=== PATIENT | male | born 1930 | race Caucasian/White ===

== ENCOUNTER 2018-07-28 08:35 | Outpatient (CLI) | payer OTHER, MEDICARE | END 2018-07-28 18:28 | disposition home or self-care (01) | LOC: SCT 08:35 | PROVIDERS: ATTEND Urology Pediatric Urology | DX: N20.0 Calculus of kidney (principal); N28.1 Cyst of kidney, acquired; K80.20 Calculus of gallbladder without cholecystitis without obstruction; K40.20 Bilateral inguinal hernia, without obstruction or gangrene, not specified as recurrent; M47.819 Spondylosis without myelopathy or radiculopathy, site unspecified; I70.8 Atherosclerosis of other arteries ==